=== PATIENT | female | born 1965 | race Caucasian/White ===

== ENCOUNTER → 2016-12-17 | Outpatient (CLI) | payer BC ==
[2016-08-24 11:00] VITALS: BP 125/69
[~2016-12-17] MED LIST: ALBU2.5V5 NEB; CIPR250T30 PO; CLOP75TA PO; GLIP5TAB22 PO; Hydrocodone/Acetaminophen PO; METF500T4 PO; RANI150T2 PO; SIMV20TA3 PO; SULF1TAB24 PO; TRAM50TA PO; VARE0.5T PO; ZOLP5TAB PO
--- NOTE | 2016-12-17 17:30 | KCIC ---
Bilateral digital screening mammograms with CAD: HISTORY Routine screening COMPARISON Comparison is made to previous examinations dated 12/06/2015 and 12/06/2014. FINDINGS Breast density category C. The skin and nipples show no abnormalities. No abnormal lymph nodes are seen in the axilla. The breast parenchyma shows heterogeneous density. There are no dominant masses, suspicious calcifications or architectural distortions. IMPRESSION No evidence of malignancy. Recommend routine annual mammographic screening. This study was interpreted with the benefit of Computerized Aided Detection (CAD). Mammography is not 100% sensitive in detecting breast cancer. Therefore, a self breast exam and a clinical breast exam are very important. A negative mammogram does not negate a clinically suspicious finding and should not result in a delay in biopsying a clinically suspicious abnormality. BI-RADS category 1. Negative. This patient's information has been entered into a reminder system for the patient to be notified with the results of this examination and a target date for her next mammograms. Electronically signed by: Berna Shah MD (Dec 17, 2016 17:28:45)
== END | disposition home or self-care (01) ==
LOC: KCIC MAMMO 16:07
PROVIDERS: ATTEND Family Medicine
DX: Z12.31 Encounter for screening mammogram for malignant neoplasm of breast (principal)
CPT/HCPCS: G0202; 77067

== ENCOUNTER → 2017-12-24 | Outpatient (CLI) | payer OTHER | END | disposition home or self-care (01) | LOC: KCIC MAMMO 14:49 | DX: Z12.31 Encounter for screening mammogram for malignant neoplasm of breast (principal) | CPT/HCPCS: 77067 ==

== ENCOUNTER 2018-05-15 17:51 | Emergency (ER) | payer OTHER ==
[2018-05-15 18:26] LABS: ADD MAN DIFF? NO
[2018-05-15 18:28] LABS: BASO # 0.1 x10^3/uL (0.0-0.2); BASO % 1 % (0-3); EOS # 0.2 x10^3/uL (0.0-0.7); EOS % 2 % (0-3); HEMATOCRIT 40.7 % (36.0-47.0); HEMOGLOBIN 13.8 g/dL (12.0-15.5); LYMPH # 3.4 x10^3/uL (1.0-4.8); LYMPH % 30 % (24-48); MEAN CORPUSCULAR HEMOGLOBIN 31 pg (25-35); MEAN CORPUSCULAR HGB CONC 34 g/dL (31-37); MEAN CORPUSCULAR VOLUME 93 fL (79-100); MONO # 0.7 x10^3/uL (0.0-1.1); MONO % 6 % (0-9); NEUT # 7.2 x10^3uL (1.8-7.7); NEUT % 62 % (31-73); PLATELET COUNT 334 x10^3/uL (140-400); RED CELL DISTRIBUTION WIDTH 13.7 % (11.5-14.5); WHITE BLOOD COUNT 11.6 x10^3/uL (4.0-11.0)
[2018-05-15] MEDS: ASPIRIN CHEWABLE 81 MG TABLET. PO (18:33)
[2018-05-15] MEDS: IV NORMAL SALINE 1000ML BAG 1,000 ML IV (18:33)
[2018-05-15] MEDS: NITROGLYCERIN SUBLINGUAL 0.4 MG BOTTLE OF 25. SL (18:35)
[2018-05-15 18:43] LABS: ANION GAP 10 (6-14); BLOOD UREA NITROGEN 24 mg/dL (7-20); BUN/CREATININE RATIO 22 (6-20); CALCIUM 9.9 mg/dL (8.5-10.1); CARBON DIOXIDE 29 mmol/L (21-32); CHLORIDE 103 mmol/L (98-107); CREATININE 1.1 mg/dL (0.6-1.0); GFR 51.8; GLUCOSE 174 mg/dL (70-99); SODIUM 142 mmol/L (136-145)
[2018-05-15 18:48] LABS: ALBUMIN 3.6 g/dL (3.4-5.0); ALBUMIN/GLOBULIN RATIO 0.8 (1.0-1.7); ALK PHOS 127 U/L (46-116); ALT (SGPT) 26 U/L (14-59); AST (SGOT) 17 U/L (15-37); LIPASE 171 U/L (73-393); TOTAL BILIRUBIN 0.3 mg/dL (0.2-1.0)
[2018-05-15 18:51] LABS: TROPONINI < 0.017 ng/mL (0.000-0.055)
[2018-05-15 18:58] LABS: CKMB MASS < 0.5 ng/mL (0.0-3.6); CREATINE KINASE 31 U/L (26-192)
[2018-05-15 19:23] LABS: BILIRUBIN,URINE NEGATIVE (NEG); CLARITY,URINE CLEAR; COLOR,URINE YELLOW; GLUCOSE,URINE 100 mg/dL (NEG); NITRITE,URINE NEGATIVE (NEG); PH,URINE 5.5; PROTEIN,URINE NEGATIVE (NEG-TRACE); UROBILINOGEN,URINE 0.2 mg/dL (0.2 mg/dL)
[2018-05-15 19:38] LABS: AMORPHOUS SEDIMENT,UR PRESENT /HPF; BACTERIA,URINE FEW /HPF (0-FEW); RBC,URINE 0 /HPF (0-2); SQUAMOUS EPITHELIAL CELL,UR MOD /LPF
[2018-05-15] MEDS: KETOROLAC 15 MG/ML VIAL. IV (19:38)
== END 2018-05-15 21:55 | disposition home or self-care (01) ==
LOC: ER 17:51
DX: R07.89 Other chest pain (principal); E78.00 Pure hypercholesterolemia, unspecified; E11.9 Type 2 diabetes mellitus without complications; Z86.73 Personal history of transient ischemic attack (TIA), and cerebral infarction without residual deficits; Z88.5 Allergy status to narcotic agent; Z88.8 Allergy status to other drugs, medicaments and biological substances
CPT/HCPCS: 36415; 71045; 80053; 81001; 82553; 83690; 84484; 85025; 87086; 93005; 96374; 99285-25; J1885; J7030

== ENCOUNTER → 2019-01-02 | Outpatient (CLI) | payer OTHER ==
[2018-05-15 21:30] VITALS: BP 126/74
[~2019-01-02] MED LIST changes: +METF500T16 PO; -METF500T4 PO
--- NOTE | 2019-01-02 14:06 | KCIC ---
Left breast diagnostic digital mammograms: Reason for examination: Small nodular parenchymal density on screening mammogram. Comparison is made to previous study dated 12/25/2018. Coned compression view were obtained in CC and lateral projections. With these additional views, there is heterogeneously dense fibroglandular tissue anteriorly without definite focal lesion seen with the additional views. A small nodule consistent with intramammary lymph node is seen at the 2:00 position posteriorly. IMPRESSION: No suspicious abnormalities are seen mammographically with additional views. Ultrasound to follow. BI-RADS Category 0: Incomplete. Needs additional imaging evaluation. Left breast ultrasound: Ultrasound examination of the lateral left breast and axilla was performed. There is a small 8.7 mm hypoechoic nodule at the 2:00 position 9 cm from the nipple which corresponds to the lymph node seen mammographically which is stable. In the 1:00 position 4.5 cm from the nipple, there is a patch of fibrocystic-type tissue which probably corresponds to the area of mammographic concern. No other cystic or solid lesions are seen. No abnormal appearing lymph nodes are seen in the axilla. IMPRESSION: Small hypoechoic lesion at the 2:00 position 9 cm from the nipple measuring 8.7 mm in greatest dimension consistent with a stable intramammary lymph node seen mammographically. Small focus of fibrocystic-type change in the 1:00 position 4.5 cm from the nipple. No grossly suspicious abnormalities are seen. Recommend 6 month follow-up of the left breast with mammograms and ultrasound. BI-RADS Category 3: Probably Benign. "Our facility is accredited by the [employer] Mammography Program." This patient's information has been entered into a reminder system for the patient to be notified with the results of her examination and a target date for the next mammogram. Electronically signed by: Lesa Shah MD (01/02/2019 2:03 PM) [id number]
== END | disposition home or self-care (01) ==
LOC: KCIC MAMMO 12:46
PROVIDERS: ATTEND Family Medicine
DX: N63.21 Unspecified lump in the left breast, upper outer quadrant (principal)
CPT/HCPCS: 76641; 77065

== ENCOUNTER → 2019-06-01 | Outpatient (CLI) | payer OTHER ==
[2018-05-15 21:30] VITALS: BP 126/74
--- NOTE | 2019-06-01 13:10 | KCIC ---
Exam performed: CT scan of the abdomen and pelvis without contrast. Clinical Indication: Right lower quadrant pain. Date of Service: 06/01/2019 comparison: None available Technique: Contiguous helical acquisitions are obtained through the abdomen and pelvis without IV contrast. Sagittal and coronal reformatted images are obtained and reviewed. CT abdomen and pelvis findings: The lung bases are essentially clear. Visualized heart is normal. Lack of IV contrast limits evaluation of abdominal viscera, however the gallbladder, spleen and pancreas are normal. Diffuse hepatic steatosis. Both adrenal glands and bilateral kidneys are normal in size without hydronephrosis or nephrolithiasis. Aorta is normal in caliber demonstrating diffuse atheromatous calcification without aneurysm. The small bowel loops are nondilated and unremarkable. Mild wall thickening of the ascending colon is seen without inflammatory changes. Appendix is normal. The visualized portion of the appendix is unremarkable Distal ureters are nondilated. Urinary bladder is decompressed and thick walled. [Prostate gland, seminal vesicles and rectum appear normal.] No free or focal fluid collections are identified. Bones are normal Impression: Mild wall thickening of the ascending colon. This is of unclear clinical significance. Mild colitis cannot be excluded Diffuse hepatic steatosis. PQRS Compliance Statement: One or more of the following individualized dose reduction techniques were utilized for this examination: 1. Automated exposure control 2. Adjustment of the mA and/or kV according to patient size 3. Use of iterative reconstruction technique Electronically signed by: Mar Johns MD (06/01/2019 1:07 PM) [facility]
== END | disposition home or self-care (01) ==
LOC: KCIC 10:54
PROVIDERS: ATTEND Nurse Practitioner Gerontology
DX: K76.0 Fatty (change of) liver, not elsewhere classified (principal); I70.0 Atherosclerosis of aorta
CPT/HCPCS: 74176

== ENCOUNTER → 2019-06-16 | Outpatient (CLI) | payer OTHER ==
[2018-05-15 21:30] VITALS: BP 126/74
--- NOTE | 2019-06-16 13:50 | KCIC ---
ABDOMEN COMPLETE: 06/16/2019 11:00 AM Indication: 54 years old Female. Abdominal pain . Comparison: None. TECHNIQUE: Sonographic evaluation of the abdomen is performed utilizing grayscale and color Doppler. FINDINGS: Liver: There is diffuse increased echogenicity of the hepatic parenchyma compatible with diffuse hepatocellular disease, most commonly due to steatosis. This decreases the sensitivity of ultrasound for the detection of focal hepatic lesions.. There is hepatopedal flow within the portal venous system. Right hepatic lobe measures 16.7 cm. Biliary system: CBD measures 4.3 mm. There is no intrahepatic or extrahepatic biliary dilatation. Gallbladder: No stones, wall thickening or pericholecystic fluid. . Sonographic Pardo sign: Negative Pancreas: Poorly visualized due to overlying bowel gas. Spleen: 9.6 cm. Right kidney: 11.4 x 4.5 x 4.8 cm. No hydronephrosis. Normal echotexture without focal mass or renal calculus. Left kidney: 11.2 x 4.8 x 4.0 cm. No hydronephrosis. Normal echotexture without focal mass or renal calculus. Abdominal aorta and IVC: Poorly visualized Free fluid:None. IMPRESSION: 1. Diffuse increased echogenicity of the hepatic parenchyma suggestive of diffuse hepatocellular disease, most commonly due to hepatic steatosis. 2. Gallbladder is normal in appearance without gallstones, gallbladder wall thickening or pericholecystic fluid. Electronically signed by: Yessenia Palu MD (06/16/2019 1:46 PM) [id number]
== END | disposition home or self-care (01) ==
LOC: KCIC US 10:26
PROVIDERS: ATTEND Family Medicine
DX: R10.9 Unspecified abdominal pain (principal)
CPT/HCPCS: 76700

== ENCOUNTER → 2020-05-13 | Outpatient (CLI) | payer OTHER ==
[2018-05-15 21:30] VITALS: BP 126/74
[~2020-05-13] MED LIST changes: +OXYC1TAB19 PO; +PANT40TA77 PO; +PIOG45TA40 PO; +SIMV20TA18 PO; -SIMV20TA3 PO
== END | disposition home or self-care (01) ==
LOC: LAB 14:25
PROVIDERS: ATTEND Orthopaedic Surgery
DX: Z11.59 Encounter for screening for other viral diseases (principal)
CPT/HCPCS: U0003-CS

== ENCOUNTER 2020-05-17 10:41 | Day surgery (SDC) | payer OTHER ==
[~2020-05-17] VITALS: Ht 157.5 cm; Wt 99.3 kg
[~2020-05-17 10:41] MED LIST changes: +HYDROmorphone 2 MG/ML VIAL IV PRN; +IV RINGERS,LACTATED 1000ML 1,000 ML IV SCH; +LIDOCAINE 1% PF 2 ML VIAL. ID PRN; +MORPHINE SULFATE 2 MG/ML VIAL. IV PRN; +ONDANSETRON PF 4 MG/2 ML VIAL. IV PRN; -OXYC1TAB19 PO; +PROCHLORPERAZINE 10 MG/2 ML VIAL. IV PRN; +fentaNYL PF VIAL 100 MCG/2 ML VIAL IV PRN
[2020-05-17] MEDS ORDERED: INSULIN LISPRO 100 UNIT/ML 3ML VIAL for OP,RR ONLY. SQ PRN (10:45)
[2020-05-17] MEDS ORDERED: ROCURONIUM 50 MG/5 ML VIAL. ONE (11:12)
[2020-05-17] MEDS ORDERED: fentaNYL PF VIAL 100 MCG/2 ML VIAL ONE ×2 (11:12→15:38)
[2020-05-17] MEDS ORDERED: LIDOCAINE 2% PF 5 ML VIAL. ONE (11:13)
[2020-05-17] MEDS ORDERED: ONDANSETRON PF 4 MG/2 ML VIAL. ONE (11:13)
[2020-05-17] MEDS ORDERED: PROPOFOL 10 MG/ML (20ML) VIAL. IV ONE (11:13)
[2020-05-17] MEDS ORDERED: DEXAMETHASONE SOD PHOS 4 MG/ML VIAL ONE (11:13)
[2020-05-17 11:16] LABS: BASO # 0.1 x10^3/uL (0.0-0.2); BASO % 1 % (0-3); EOS # 0.1 x10^3/uL (0.0-0.7); EOS % 1 % (0-3); HEMATOCRIT 37.2 % (36.0-47.0); LYMPH # 2.5 x10^3/uL (1.0-4.8); LYMPH % 27 % (24-48); MEAN CORPUSCULAR HEMOGLOBIN 32 pg (25-35); MEAN CORPUSCULAR HGB CONC 35 g/dL (31-37); MEAN CORPUSCULAR VOLUME 91 fL (79-100); MONO # 0.6 x10^3/uL (0.0-1.1); MONO % 6 % (0-9); NEUT % 65 % (31-73); PLATELET COUNT 293 x10^3/uL (140-400); RED CELL DISTRIBUTION WIDTH 14.1 % (11.5-14.5); WHITE BLOOD COUNT 9.2 x10^3/uL (4.0-11.0)
[2020-05-17 11:28] LABS: CALCIUM 8.3 mg/dL (8.5-10.1); CREATININE 0.9 mg/dL (0.6-1.0); GFR 64.8; POTASSIUM 3.6 mmol/L (3.5-5.1)
[2020-05-17] MEDS ORDERED: INSULIN LISPRO 100 UNIT/ML 3ML VIAL for OP,RR ONLY. SQ ONE (11:35)
[2020-05-17] MEDS ORDERED: BUPIVACAINE MPF 0.5% 30 ML VIAL. ONE (11:39)
[2020-05-17] MEDS ORDERED: MIDAZOLAM HCL/PF 2 MG/2 ML VIAL. ONE ×2 (11:40→12:49)
[2020-05-17] MEDS ORDERED: MIDAZOLAM HCL/PF 2 MG/2 ML VIAL. IV ONE (13:00)
[2020-05-17] MEDS ORDERED: HYDROmorphone 2 MG/ML VIAL ONE (13:57)
[2020-05-17] MEDS ORDERED: EPINEPHrine VIAL 30 MG/30 ML VIAL IM ONE (14:14)
[2020-05-17] MEDS ORDERED: GLYCOPYRROLATE 1 MG/5 ML VIAL. ONE (14:45)
[2020-05-17] MEDS ORDERED: NEOSTIGMINE METHYLSULFATE 5 MG/5 ML SYRINGE. ONE (14:45)
[2020-05-17] MEDS ORDERED: oxyCODONE/APAP 7.5/325 1 TAB TABLET PO ONE (15:00)
--- NOTE | 2020-05-17 15:09 | PDOC4 ---
Operative Note Operative Note Date of surgery: 05/17/2020 Preoperative diagnosis: Right shoulder partial rotator cuff tear and acromioclavicular joint pain and degenerative change Postoperative diagnosis: Same with partial-thickness subscapularis and supraspinatus tear, severe impingement findings and degenerative change acromioclavicular joint Operative procedure: Right shoulder arthroscopy debridement of partial-thickness rotator cuff tears, distal clavicle excision, subacromial decompression Surgeon: Juliet [employer] Teacher: Ute knight assist Anesthesia: General plus interscalene block Estimated blood loss: 10 cc Complications: None Operative indications: Please see my orthopedic clinic note for detailed operative indications and note that in addition to evaluating and treating the rotator cuff tear I explained we are going to address any other pathology present with particular attention to the acromioclavicular joint which is narrowed and painful and cover the possibility of infection nonhealing nerve or blood vessel damage continued pain weakness the long period of recovery and restrictions necessary and the rationale for those all her questions were answered she wishes to proceed with surgical evaluation and treatment having given informed consent. Operative text: Patient was identified procedure verified patient placed in the supine position on the operating table. After adequate amounts of general anesthesia plus a pre-existing scalene block were obtained patient was placed in the decubitus position right side up all bony prominences were well-padded and the right upper extremity was prepped and draped in standard sterile fashion. After timeout was performed patient procedure identified and verified the right upper extremity was examined under anesthesia and found to have full range of motion and no instability. The right upper extremity was then placed in the arthroscopic arm vega with a total of 10 pounds of traction a standard posterior portal was established an anterior portal established using spinal needle localization and the shoulder joint was systematically examined. She was found to have partial undersurface tearing of the supraspinatus and subscapularis insertions which were trimmed back to stable tissue using the arthroscopic shaver and noted to only have about 15% involvement and capsule ligamentous structures were noted to be intact as well as the glenohumeral joint normal bare area of the humerus. Subacromial space was then entered and bursa w as cleared for visualization. There was some irritation over the bursal side of the rotator cuff but no significant tearing that required repair. She did have a large anterior acromial spur which was trimmed back to stable type I acromion using cutting block technique with the arthroscopic bur. The acromioclavicular joint was very narrowed and degenerative and the capsule had been previously violated inferiorly. Distal clavicle excision was carried out with 1 cm of resection and the surrounding joint capsule preserved for stability. Bony fragments were excised with the arthroscopic shaver and the bursal side rotator cuff examined in all degrees of internal/external rotation. Joint was drained of arthroscopic fluid portals closed with nylon suture sterile dressings were applied patient was placed in an immobilizer returned to recovery room in stable condition having tolerated procedure well. Ute knight assist was present for the procedure assisted in the prepping draping positioning the scope for visualization and closure BENY MUÑOZ MD May 17, 2020 15:09
[2020-05-17] MEDS ORDERED: OXYC1TAB19 PO (15:10)
--- NOTE | 2020-05-17 15:12 | DISCH ---
DISCHARGE INSTRUCTIONS Condition on Discharge Condition on Discharge: Stable Activity After Discharge Activity Instructions for Disc: Activity as tolerated (May start active motion and strengthening as symptoms tolerate) Lifting Instructions after Dis: No heavy lifting Exercise Instruction after Dis: Progress as tolerated Driving Instructions after Dis: Do not drive today Weight Bearing Status after Di: As tolerated Diet after Discharge Diet after Discharge: Cardiac, Diabetic No Calorie Level Diet Texture: Regular Swallowing Supervision: None needed Wound Incision Care Wound/Incision Care: Change dressing (May remove dressing in 2 days may then shower no soaking until sutures removed), No wound care needed Wound Care Equipment: Dressings Checks after Discharge Checks after discharge: Check blood sugar, ac/hs Community/Resources/Services Services at Discharge: PT EVALUATE & TREAT (May start physical therapy for immediate passive and active range of motion strengthening as tolerated) Contacting the after DC Call your doctor for: Concerns you may have Follow-Up Follow up with: Dr. Chung 7 to 10 days Treatment/Equipment after DC Adaptive Equipment Issued: None BENY CHUNG MD May 17, 2020 15:12
[2020-05-17] MEDS: fentaNYL PF VIAL 100 MCG/2 ML VIAL IV PRN ×2 (15:41→15:48)
[2020-05-17 16:10] VITALS: BP 119/64
== END 2020-05-17 16:30 | disposition home or self-care (01) ==
LOC: SURG 10:41
PROVIDERS: ATTEND Orthopaedic Surgery
DX: M75.112 Incomplete rotator cuff tear or rupture of left shoulder, not specified as traumatic (principal); M75.42 Impingement syndrome of left shoulder; M19.011 Primary osteoarthritis, right shoulder; Z79.899 Other long term (current) drug therapy; Z79.01 Long term (current) use of anticoagulants
CPT/HCPCS: 29822; 29824; 29826; 36415; 64415; 80048; 82962; 85025; A7015; C1713; J0171; J0690; J0780; J1100; J1170; J1815; J2250; J2405; J2704; J2710; J3010; J3490; A4565